=== PATIENT | female | born 1985 | race Asian ===

== ENCOUNTER 2019-06-05 19:56 | Emergency (ER) | payer SELFPAY ==
--- NOTE | 2019-06-05 20:59 | UC ---
FLU HPI - HPI Summary HPI Summary: 34 y/o female presents to the urgent care c/o cold symptoms and dry cough for the past 5 days. Cough has become more persistent and about 2 days ago she developed Temp, 99.5, body aches, chills and fatigue. She also experienced mild diarrhea for 2 days and which has resolved by now. Last night she experience mild SOB when she was lifting her cat, which is unusual for her. She is concerned with COVID. No Hx of recent travel. Pt denies dizziness, chest pain, MARTNIEZ, abdominal pain, N/V/D. - History of Current Complaint Chief Complaint: UCRespiratory Stated Complaint: WANTS FLU TEST Time Seen by Provider: 06/05/19 20:29 Hx Obtained From: Patient Hx Last Menstrual Period: 06/05/2019 Onset/Duration: Gradual Onset, Lasting Days - 5 days, Still Present, Worse Since - mild SOB last night Severity Currently: Mild Severity Initially: Mild Pain Intensity: 2 - body aches Pain Scale Used: 0-10 Numeric Associated Signs & Symptoms: Positive: Fever - subjective fever at home. Temp: 99.5, Myalgia - Risk Factors Influenza Risk Factors: Negative - Allergy/Home Medications Allergies/Adverse Reactions: Allergies Allergy/AdvReac Type Severity Reaction Status Date / Time No Known Allergies Allergy Verified 06/05/19 20:40 Home Medications: Home Medications Multivitamin [Multivitamins] 1 cap 06/05/19 [History] PMH/Surg Hx/FS Hx/Imm Hx Previously Healthy: Yes - Pt denies PMHX - Surgical History Surgical History: None - Family History Known Family History: Positive: Hypertension, Diabetes - Social History Occupation: Employed Full-time Lives: With Family Alcohol Use: None Substance Use Type: None Smoking Status (MU): Never Smoked Tobacco Review of Systems All Other Systems Reviewed And Are Negative: Yes Constitutional: Positive: Fever - subjective low grade fever at home., Chills, Fatigue, Other - body aches Skin: Positive: Negative Eyes: Positive: Negative ENT: Positive: Nasal Discharge - clear mild Respiratory: Positive: Cough - persistant dry cough Cardiovascular: Positive: Negative Gastrointestinal: Positive: Negative Genitourinary: Positive: Negative Motor: Positive: Negative Neurovascular: Positive: Negative Musculoskeletal: Positive: Myalgia Neurological/Mental Status: Positive: Headache Psychological: Positive: Negative Is Patient Immunocompromised?: No Physical Exam - Summary Physical Exam Summary: Vital Signs Reviewed: Yes Appearance: Well-Appearing - VITAL SIGNS: Reviewed. To decrease the potential of COVID 19 the physical examination was performed through Telemedicine which limits the examination. Physcial exam was done w/ the help of nurse. Patient is a well developed and nourished female who is sitting comfortably in the examining table. Patient is in any acute respiratory distress. Eye Exam: Normal Eyes: Positive: Conjunctiva Clear ENT: Positive: Pharynx normal - midl erythema as per nurse. Negative: Nasal congestion, Nasal drainage Respiratory Exam: Normal Respiratory: Positive: Chest non-tender, Lungs clear, Normal breath sounds - as per nurse Cardiovascular Exam: Normal Musculoskeletal: Positive: Strength Intact - Extrems: moves all extremities with good strength. Neurological Exam: Normal - NEURO: Alert and oriented x 3. No acute neurological deficits. Pt follows commands. Psychological Exam: Normal Skin Exam: Normal Triage Information Reviewed: Yes Flu Course/Dx - Course Course Of Treatment: 34 y/o female presents to the urgent care c/o cold symptoms and dry cough for the past 5 days. Cough has become more persistent and about 2 days ago she developed Temp, 99.5, body aches, chills and fatigue. She also experienced mild diarrhea for 2 days and which has resolved by now. Last night she experience mild SOB when she was lifting her cat, which is unusual for her. She is concerned with COVID. No Hx of recent travel. Pt denies dizziness, chest pain, MARTINEZ, abdominal pain, N/V/D. Hx obtained. Pt w/ possible viral syndrome on examination. Rapid strep ordered, result: negative. Influenza A&B: negative. COVID19 testing ordered since Pt exposed to Pts w/ worsening symptoms and awaiting for COVID results. Pt advised COVID results will have a turn over of 3- 6 days and she will have to quarantine while waiting for the results and Health department will contact her to notify her of any abnormality. Tylenol PO was dispense tonight to take home since Pt doesn't have Tylenol at home. Pt advised to take Tylenol to alleviate symptoms. Increase hydration and boost his immune system by eating well, taking Vitamin C and avoiding strenuous exercise. Pt's BP is elevated today and advised to decrease salt in diet, monitor BP and f/u with PCP if BP continues to be elevated for further management. If symptoms worsen and she developes severe MARTINEZ, visual changes or SOB to go immediately to the ER for further management. D/C instructions explained. Pt understood and agreed w/ plan of care. Pt left the clinic ambulating - Differential Dx/Diagnosis Differential Diagnosis/HQI/PQRI: Bronchitis, Influenza, Pneumonia, Upper Respiratory Infection, Other - COVID Provider Diagnosis: Viral syndrome, Elevated BP without diagnosis of hypertension Discharge ED - Sign-Out/Discharge Documenting (check all that apply): Patient Departure - D/C home All imaging exams completed and their final reports reviewed: No Studies - Discharge Plan Condition: Stable Disposition: HOME Patient Education Materials: Viral Syndrome (ED) Forms: COVID-19 Tested & Isolation Referrals: [facility] [place] PHYSICIAN REFERRAL [Outside] - 3 Days Additional Instructions: 1- Oropharyngeal swabs have been sent to the lab to r/o COVID 19, you will be notified of any abnormality as soon as we get the results. 2-Please Take Tylenol PO q6-8hrs prn as instructed after meals to alleviate fever, or myalgias. Take Vitamin C to boost your immune system. Increase fluid intake, eat well, rest and avoid strenuous exercise. 3- Please isolate at home until you get the results. The Health department will contact you and will ask for temperature, follow their recommendations. Their phone #[phone] if you have any questions 4-If you develop any SOB, chest pain, any respiratory distress, weakness, nausea and vomiting please return to the urgent care or go immediately to the ER for further management. 5-Your BP is elevated today. Please take your BP medications and decrease salt in your diet, monitor BP and if it continues to be elevated please f/u with your PCP for further management. If you develop chest pain, dizziness, visual disturbances, SOB, or severe MARTINEZ please go immediately to the ER for further management - Billing Disposition and Condition Condition: STABLE Disposition: Home
[2019-06-05 22:08] LABS: Influenza A Molecular Negative (Negative); Influenza B Molecular Negative (Negative)
[2019-06-05] MEDS ORDERED: Acetaminophen TAB* 325 MG PO ONE ×2 (22:15→22:16)
[2019-06-05 22:49] VITALS: BP 152/102
== END 2019-06-05 22:49 | disposition home or self-care (01) ==
LOC: UCEAST 19:56
DX: B34.9 Viral infection, unspecified (principal); R03.0 Elevated blood-pressure reading, without diagnosis of hypertension; R06.02 Shortness of breath; Z20.828 Contact with and (suspected) exposure to other viral communicable diseases
CPT/HCPCS: 87651; 99203; A9270-GY; G0463; U0002